=== PATIENT | male | born 1960 | race Caucasian/White ===

== ENCOUNTER 2016-07-09 14:52 | Emergency (ER) | payer MEDICARE, OTHER ==
[~2016-07-09] VITALS: Ht 185.4 cm; Wt 112.7 kg
[2016-07-09 15:14] VITALS: BP 124/88; PULSE 107; RESP 18; O2SAT 99
--- NOTE | 2016-07-09 15:35 | ED.REPORT ---
HPI-Overdose/Alcohol Toxicity Date of Service Jul 09, 2016 ED Provider: History of Present Illness: wants detox for etoh. last drink was yesterday noon to 5 pm. has not had a problem with stopping etoh previously. primary care is 08/11 at [facility] residency, will be establishing there. Nursing Notes Stated Complaint: DETOX Chief Complaint: Substance Abuse Nursing Notes Reviewed: Yes Allergies: Coded Allergies: No Known Allergies (Unverified , 07/09/16) General Time Seen by Provider: 15:35 Chief Complaint Other (wants detox) Hx Obtained From: Patient Past Medical History Past Medical History Denies: Asthma Past Surgical History 5 back surgeries, not helpful Reports: Cholecystectomy Smoking History Former Smoker (guit 04/30/2006) Social History Alcohol Use: >5 per day Drug Use: Denies drug use Occupation lives with , no work or school 07/09/2016 Ambulatory Status Independent Review of Systems Basic Review of Systems : No dysuria, No frequency Allergy / Immune: No allergy Physical Exam Initial Vital Signs Vital Signs (First) Date Time Temp Pulse Resp B/P Pulse Ox O2 Delivery O2 Flow Rate FiO2 07/09/16 15:14 36.5 107 18 124/88 99 Room Air Initial VS: Reviewed, Vital signs normal Head / Eyes: Atraumatic, Normocephalic, PERRL ENT: Mucous membranes moist, Conjunctiva normal, No scleral icterus Neck: Supple, Non-tender, Full range of motion Back: No CVA tenderness Lymphatic: No lymphadenopathy Extremities: Vascular intact, Neuro intact, No swelling, No tenderness Skin: Warm, Dry, No cyanosis General/Constitutional: Awake, Alert, No acute distress, Well appearing, Well developed, Well hydrated, Well nourished, Cooperative, Not toxic appearing Respiratory / Chest: Atraumatic, Breath sounds NL, Breath sounds = bilat, No respiratory distress Cardiovascular: Heart rate NL, Regular rhythm, Heart sounds NL, No gallop Abdomen: Atraumatic, Soft, Non-tender, McBurney's non-tender Neurologic: Oriented X3, Speech NL, No motor deficits Abnormal Thinking / Perception: Positive: Insight abnormal, Judgment abnormal Re-Eval/Medical Decision Med Decision/Clinical Course 55 year old male requesting detox for alcohol. Here with . reports long hx of drinking with "the ability to stop whenever" Has not had any seizures with stopping prior. [employer] works with patient and . At this time they do not desire a formal program. Discussed with them the need to get help. Will provide a short tapering course of ativan. No sign of overdose or schizophrenia Discharge & Departure Impression: Primary Impression: Alcohol abuse Patient Instructions: Abuse of Alcohol (ED) Additional Instructions: Please use the resources that [employer] provided to you. Do not use opiates with ativan, or xanax. Do not use alcohol while taking ativan. The combination of these medication and alcohol can be deadly. I want you to wake up every morning. Take ativan 1 mg 3 times a day for 3 days, then 1 mg 2 times a day for 3 days then once a day for 3 days. Please call your primary care provider and let them know you need an ER follow up. Referrals: [facility] EDSupervising Provider for APC: Collette Ayala MD copies to: [facility] Tiff Pitts Jul 09, 2016 15:35
[2016-07-09 17:25] VITALS: BP 116/70; PULSE 95; O2SAT 93
[2016-07-09 20:17] VITALS: BP 122/81; PULSE 98; RESP 14; O2SAT 93
== END 2016-07-09 20:18 ==
LOC: SED 14:52
DX: F10.10 Alcohol abuse, uncomplicated (principal); Z87.891 Personal history of nicotine dependence